=== PATIENT | female | born 1980 | race Caucasian/White ===

== ENCOUNTER 2021-06-06 14:44 | Emergency (ER) | payer OTHER ==
[~2021-06-06] VITALS: Ht 154.9 cm; Wt 49.1 kg
[2021-06-06 14:54] VITALS: BP 137/74
--- NOTE | 2021-06-06 15:00 | NUR ---
pt states she has an appt and is leaving.
== END 2021-06-06 15:01 | disposition left against medical advice (07) ==
LOC: ER 14:44
DX: R10.9 Unspecified abdominal pain (principal); Z53.21 Procedure and treatment not carried out due to patient leaving prior to being seen by health care provider